=== PATIENT | male | born 1930 | race Asian ===

== ENCOUNTER 2018-07-30 19:13 | Inpatient (IN) | payer MEDICAID, OTHER, MEDICARE ==
[~2018-07-30] VITALS: Ht 162.6 cm; Wt 63.1 kg
[2018-07-30 20:18] LABS: CALCIUM 9.7 mg/dL (8.5-10.1); CARBON DIOXIDE 19.1 mmol/L (21-32); CHLORIDE SERUM 105 mmol/L (98-107); CREATININE SERUM 2.3 mg/dL (0.7-1.3); GLUCOSE SERUM 148 mg/dL (74-106); PLATELET COUNT 173 x10^3mcL (130-400); RED CELL DISTRIBUTION WIDTH 13.1 % (11.5-14.5); SODIUM SERUM 140 mmol/L (136-145)
[2018-07-30 20:22] LABS: ALKALINE PHOSPHATASE 75 U/L (46-116); ALT/SGPT 24 U/L (16-63); AST/SGOT 30 U/L (15-37)
[2018-07-30 20:23] LABS: ALBUMIN 2.5 g/dL (3.4-5.0); TOTAL PROTEIN, SERUM 8.5 g/dL (6.4-8.2)
[2018-07-30 20:52] LABS: MONOCYTE 1 % (0-7); SEGMENTED NEUTROPHILS 69 % (37-75)
[2018-07-30 20:53] LABS: BAND NEUTROPHIL 19 % (0-10); BASOPHIL 0 % (0-2); METAMYELOCTE 1 % (0-2); MYELOCYTE 1 % (0-2); PLATELET MORPHOLOGY PLATELETS NORMAL; rbc morphology (normal/abnorm) NORMAL (NORMAL)
[2018-07-30 21:52] LABS: MAGNESIUM 2.5 mg/dL (1.8-2.4); PHOSPHOROUS 4.2 mg/dL (2.5-4.9)
[2018-07-30 21:53] LABS: CHOLESTEROL/HDL RATIO 3.2
[2018-07-30 21:55] LABS: T3 TOTAL 0.57 ng/mL
[2018-07-30] MEDS ORDERED: SIMVASTATIN20 M1 PO (21:59)
[2018-07-30] MEDS ORDERED: LINZESS145 MC1 PO (21:59)
[2018-07-30 22:02] LABS: FREE T4 1.67 ng/dL (0.76-1.46); FREE THYROXINE INDEX 3.2 ug/dL (1.4-4.5); T4(THYROXINE) 8.7 ug/dL (4.7-13.3)
[2018-07-30] MEDS ORDERED: XARELTO15 M1 PO (22:02)
[2018-07-30] MEDS ORDERED: CARVEDILOL6.25 M1 PO (22:02)
[2018-07-30] MEDS ORDERED: PROVENTIL0.09 MG/A1 INH (22:03)
[2018-07-30 23:10] VITALS: BP 103/53
[2018-07-30 23:10] LABS: UA SPECIFIC GRAVITY 1.025 (1.005-1.035); microscopic required? YES; urine erythrocyte 1+ (NEGATIVE)
[2018-07-30 23:42] VITALS: BP 92/53
[2018-07-31] VITALS (7 sets, daily range): BP systolic 100–120; BP diastolic 56–75
[2018-07-31 05:25] LABS: BASOPHIL % 0.2 % (0-2); PLATELET COUNT 141 x10^3mcL (130-400); RED CELL DISTRIBUTION WIDTH 13.4 % (11.5-14.5)
[2018-07-31 05:31] LABS: CALCIUM 8.4 mg/dL (8.5-10.1); CARBON DIOXIDE 22.2 mmol/L (21-32); CHLORIDE SERUM 112 mmol/L (98-107); CREATININE SERUM 1.7 mg/dL (0.7-1.3); GLUCOSE SERUM 119 mg/dL (74-106); MAGNESIUM 1.9 mg/dL (1.8-2.4); PHOSPHOROUS 2.7 mg/dL (2.5-4.9); POTASSIUM SERUM 3.6 mmol/L (3.5-5.1); SODIUM SERUM 145 mmol/L (136-145)
[2018-08-01] VITALS (8 sets, daily range): BP systolic 99–121; BP diastolic 60–78; Ht 162.6 cm; Wt 63.1 kg
[2018-08-01 05:17] LABS: PLATELET COUNT 158 x10^3mcL (130-400); RED CELL DISTRIBUTION WIDTH 13.1 % (11.5-14.5)
[2018-08-01 05:46] LABS: BAND NEUTROPHIL 3 % (0-10); METAMYELOCTE 2 % (0-2); MONOCYTE 3 % (0-7); SEGMENTED NEUTROPHILS 88 % (37-75); rbc morphology (normal/abnorm) NORMAL (NORMAL)
[2018-08-01 05:47] LABS: PLATELET MORPHOLOGY FEWLARGE PLATELET
[2018-08-01 06:07] LABS: CALCIUM 8.8 mg/dL (8.5-10.1); CARBON DIOXIDE 22.2 mmol/L (21-32); CHLORIDE SERUM 115 mmol/L (98-107); CREATININE SERUM 1.6 mg/dL (0.7-1.3); GLUCOSE SERUM 139 mg/dL (74-106); PHOSPHOROUS 2.9 mg/dL (2.5-4.9); SODIUM SERUM 150 mmol/L (136-145)
[2018-08-02] VITALS (13 sets, daily range): BP systolic 88–142; BP diastolic 43–116
[2018-08-02 04:57] LABS: CALCIUM 8.3 mg/dL (8.5-10.1); CHLORIDE SERUM 121 mmol/L (98-107); CREATININE SERUM 1.4 mg/dL (0.7-1.3); GLUCOSE SERUM 132 mg/dL (74-106); PHOSPHOROUS 3.3 mg/dL (2.5-4.9); POTASSIUM SERUM 3.7 mmol/L (3.5-5.1); SODIUM SERUM 154 mmol/L (136-145)
[2018-08-02 05:13] LABS: PLATELET COUNT 140 x10^3mcL (130-400); RED CELL DISTRIBUTION WIDTH 12.9 % (11.5-14.5)
[2018-08-02 05:56] LABS: BAND NEUTROPHIL 13 % (0-10); BASOPHIL 0 % (0-2); METAMYELOCTE 1 % (0-2); MONOCYTE 2 % (0-7); SEGMENTED NEUTROPHILS 77 % (37-75)
[2018-08-02 05:59] LABS: burr cell (echinocyte) 1+; rbc morphology (normal/abnorm) ABNORMAL (NORMAL); schistocyte (helmet cell) 1+; tear drop cell (dacryocyte) 1+
[2018-08-02 06:00] LABS: PLATELET MORPHOLOGY LARGE PLATELET SEEN
[2018-08-03 05:38] VITALS: BP 114/65
[2018-08-03 06:35] LABS: PLATELET COUNT 146 x10^3mcL (130-400); RED CELL DISTRIBUTION WIDTH 13.1 % (11.5-14.5)
[2018-08-03 06:58] LABS: CALCIUM 8.2 mg/dL (8.5-10.1); CARBON DIOXIDE 21.4 mmol/L (21-32); CHLORIDE SERUM 123 mmol/L (98-107); CREATININE SERUM 1.9 mg/dL (0.7-1.3); GLUCOSE SERUM 107 mg/dL (74-106); MAGNESIUM 2.3 mg/dL (1.8-2.4); PHOSPHOROUS 4.6 mg/dL (2.5-4.9); POTASSIUM SERUM 3.3 mmol/L (3.5-5.1); SODIUM SERUM 157 mmol/L (136-145)
[2018-08-03 08:25] VITALS: BP 114/65
[2018-08-03 08:51] VITALS: BP 112/55
[2018-08-03 11:19] LABS: ATYPICAL LYMPH 1 %; BAND NEUTROPHIL 2 % (0-10); BASOPHIL 0 % (0-2); MONOCYTE 2 % (0-7); SEGMENTED NEUTROPHILS 94 % (37-75)
[2018-08-03 11:20] LABS: PLATELET MORPHOLOGY PLATELETS DECREASED; rbc morphology (normal/abnorm) ABNORMAL (NORMAL)
[2018-08-03 18:13] VITALS: BP 110/51
[2018-08-03 21:04] VITALS: BP 108/68
[2018-08-04 05:48] VITALS: BP 131/76
[2018-08-04 06:12] LABS: PLATELET COUNT 145 x10^3mcL (130-400); RED CELL DISTRIBUTION WIDTH 13.6 % (11.5-14.5)
[2018-08-04 06:28] LABS: CALCIUM 7.8 mg/dL (8.5-10.1); CARBON DIOXIDE 21.4 mmol/L (21-32); CHLORIDE SERUM 126 mmol/L (98-107); CREATININE SERUM 1.7 mg/dL (0.7-1.3); GLUCOSE SERUM 124 mg/dL (74-106); MAGNESIUM 2.7 mg/dL (1.8-2.4); PHOSPHOROUS 3.2 mg/dL (2.5-4.9); POTASSIUM SERUM 3.2 mmol/L (3.5-5.1)
[2018-08-04 06:41] LABS: SODIUM SERUM 159 mmol/L (136-145)
[2018-08-04 09:09] VITALS: BP 122/82
[2018-08-04 10:54] LABS: ATYPICAL LYMPH 5 %; BAND NEUTROPHIL 1 % (0-10); BASOPHIL 0 % (0-2); MONOCYTE 2 % (0-7); SEGMENTED NEUTROPHILS 87 % (37-75)
[2018-08-04 10:55] LABS: rbc morphology (normal/abnorm) ABNORMAL (NORMAL)
[2018-08-04 10:56] LABS: PLATELET MORPHOLOGY PLATELETS DECREASED
[2018-08-04 13:38] VITALS: BP 108/67
[2018-08-04 19:13] LABS: CALCIUM 8.2 mg/dL (8.5-10.1); CHLORIDE SERUM 129 mmol/L (98-107); CREATININE SERUM 1.5 mg/dL (0.7-1.3); GLUCOSE SERUM 131 mg/dL (74-106); POTASSIUM SERUM 3.9 mmol/L (3.5-5.1); SODIUM SERUM 157 mmol/L (136-145)
[2018-08-04 20:01] VITALS: BP 129/69
[2018-08-05 05:05] VITALS: BP 117/74
[2018-08-05 06:23] LABS: PLATELET COUNT 151 x10^3mcL (130-400)
[2018-08-05 07:10] LABS: CALCIUM 8.1 mg/dL (8.5-10.1); CARBON DIOXIDE 23.1 mmol/L (21-32); CHLORIDE SERUM 126 mmol/L (98-107); CREATININE SERUM 1.5 mg/dL (0.7-1.3); GLUCOSE SERUM 141 mg/dL (74-106); MAGNESIUM 2.7 mg/dL (1.8-2.4); PHOSPHOROUS 2.7 mg/dL (2.5-4.9); POTASSIUM SERUM 3.4 mmol/L (3.5-5.1)
[2018-08-05 07:40] LABS: SODIUM SERUM 160 mmol/L (136-145)
[2018-08-05 09:29] VITALS: BP 106/53
[2018-08-05 11:59] LABS: BAND NEUTROPHIL 0 % (0-10); BASOPHIL 0 % (0-2); MONOCYTE 2 % (0-7); SEGMENTED NEUTROPHILS 97 % (37-75)
[2018-08-05 12:01] LABS: rbc morphology (normal/abnorm) ABNORMAL (NORMAL)
[2018-08-05 12:02] LABS: PLATELET MORPHOLOGY PLATELETS DECREASED
[2018-08-05 13:26] VITALS: BP 120/65
[2018-08-05 17:24] VITALS: BP 109/52
[2018-08-05 19:49] LABS: CALCIUM 7.8 mg/dL (8.5-10.1); CHLORIDE SERUM 126 mmol/L (98-107); CREATININE SERUM 1.3 mg/dL (0.7-1.3); GLUCOSE SERUM 148 mg/dL (74-106); POTASSIUM SERUM 3.3 mmol/L (3.5-5.1); SODIUM SERUM 155 mmol/L (136-145)
[2018-08-05 20:32] VITALS: BP 101/61
[2018-08-06 05:24] VITALS: BP 109/52
[2018-08-06 06:17] LABS: CALCIUM 7.9 mg/dL (8.5-10.1); CARBON DIOXIDE 26.4 mmol/L (21-32); CHLORIDE SERUM 124 mmol/L (98-107); CREATININE SERUM 1.4 mg/dL (0.7-1.3); GLUCOSE SERUM 109 mg/dL (74-106); MAGNESIUM 2.7 mg/dL (1.8-2.4); POTASSIUM SERUM 3.6 mmol/L (3.5-5.1); SODIUM SERUM 157 mmol/L (136-145)
[2018-08-06 06:28] LABS: BASOPHIL % 0.1 % (0-2); PLATELET COUNT 141 x10^3mcL (130-400); RED CELL DISTRIBUTION WIDTH 14.1 % (11.5-14.5)
[2018-08-06 09:42] VITALS: BP 105/56
[2018-08-06 13:35] VITALS: BP 104/54
[2018-08-06 16:20] VITALS: BP 104/54
[2018-08-06 20:44] VITALS: BP 109/60
[2018-08-07 05:57] VITALS: BP 96/54
[2018-08-07 09:26] VITALS: BP 109/54
[2018-08-07 14:45] VITALS: BP 103/55
[2018-08-07 15:52] LABS: CARBON DIOXIDE 21.2 mmol/L (21-32); CHLORIDE SERUM 123 mmol/L (98-107); CREATININE SERUM 1.3 mg/dL (0.7-1.3); GLUCOSE SERUM 133 mg/dL (74-106); POTASSIUM SERUM 3.1 mmol/L (3.5-5.1)
[2018-08-07 16:01] LABS: SODIUM SERUM 159 mmol/L (136-145)
[2018-08-07 17:34] VITALS: BP 98/61
[2018-08-07 20:50] VITALS: BP 108/66
[2018-08-08 05:16] VITALS: BP 100/52
[2018-08-08 07:40] LABS: CALCIUM 7.8 mg/dL (8.5-10.1); CARBON DIOXIDE 21.7 mmol/L (21-32); CHLORIDE SERUM 120 mmol/L (98-107); CREATININE SERUM 1.3 mg/dL (0.7-1.3); GLUCOSE SERUM 106 mg/dL (74-106); MAGNESIUM 2.5 mg/dL (1.8-2.4); PHOSPHOROUS 2.9 mg/dL (2.5-4.9); POTASSIUM SERUM 3.5 mmol/L (3.5-5.1); SODIUM SERUM 150 mmol/L (136-145)
[2018-08-08 08:27] LABS: PLATELET COUNT 143 x10^3mcL (130-400); RED CELL DISTRIBUTION WIDTH 13.8 % (11.5-14.5)
[2018-08-08 10:05] VITALS: BP 100/73
[2018-08-08 10:26] LABS: BAND NEUTROPHIL 1 % (0-10); BASOPHIL 0 % (0-2); MONOCYTE 2 % (0-7); SEGMENTED NEUTROPHILS 91 % (37-75); rbc morphology (normal/abnorm) ABNORMAL (NORMAL)
[2018-08-08 10:27] LABS: tear drop cell (dacryocyte) 1+
[2018-08-08 13:12] VITALS: BP 111/61
[2018-08-08 17:24] VITALS: BP 114/54
[2018-08-08 21:36] VITALS: BP 97/54
[2018-08-09 05:03] VITALS: BP 97/53
[2018-08-09 09:38] VITALS: BP 87/47
[2018-08-09 12:40] VITALS: BP 85/59
[2018-08-09 17:20] VITALS: BP 92/56
[2018-08-09 22:58] VITALS: BP 87/44
[2018-08-10 05:25] VITALS: BP 93/51
[2018-08-10 08:50] VITALS: BP 92/47
[2018-08-10 12:58] VITALS: BP 77/41
[2018-08-10 17:25] VITALS: BP 69/36
[2018-08-10 20:47] VITALS: BP 59/37
[2018-08-11 06:51] VITALS: BP 56/32
[2018-08-11 09:13] VITALS: BP 52/35
[2018-08-11 14:12] VITALS: BP 54/34
[2018-08-11 16:21] VITALS: BP 45/22
[2018-08-11 20:27] VITALS: BP 45/23
[2018-08-12 05:08] VITALS: BP 47/26
[2018-08-12 09:46] VITALS: BP 47/29
[2018-08-12 13:11] VITALS: BP 54/25
[2018-08-12 17:21] VITALS: BP 55/23
== END 2018-08-13 04:00 | disposition expired | DRG 720 ==
LOC: ED 19:13 → IC 21:19 → DU 21:19 → IC 22:08 → DU 08-02 11:58
PROVIDERS: Emergency Medicine; Family Medicine; Internal Medicine
DX: A41.9 Sepsis, unspecified organism (principal); J69.0 Pneumonitis due to inhalation of food and vomit; N17.0 Acute kidney failure with tubular necrosis; J96.01 Acute respiratory failure with hypoxia; E43 Unspecified severe protein-calorie malnutrition; D68.69 Other thrombophilia; E87.0 Hyperosmolality and hypernatremia; I50.43 Acute on chronic combined systolic (congestive) and diastolic (congestive) heart failure; E86.0 Dehydration; I48.91 Unspecified atrial fibrillation; R65.20 Severe sepsis without septic shock; E87.6 Hypokalemia; N40.0 Benign prostatic hyperplasia without lower urinary tract symptoms; R41.81 Age-related cognitive decline; I25.10 Atherosclerotic heart disease of native coronary artery without angina pectoris; Z68.20 Body mass index [BMI] 20.0-20.9, adult; Z95.5 Presence of coronary angioplasty implant and graft; Z66 Do not resuscitate
CPT/HCPCS: 36600; 83880; 84439; 92610-GN; 94150; C1758; J1160; J1644; J1885; J1940; J1956; J2270; J2543; J3480; J3490; J7030; J7042; J7060; J7070; J7620; Q0092